=== PATIENT | female | born 1970 | race Two or more races ===

== ENCOUNTER 2016-10-20 08:32 | Emergency (ER) | payer MEDICAID ==
[~2016-10-20] VITALS: Ht 167.6 cm; Wt 91.2 kg
[2016-10-20 08:32] VITALS: BP 121/79
[2016-10-20] MEDS ORDERED: ASPI1TAB PO (08:39)
[2016-10-20] MEDS ORDERED: IBUPROFEN 600 MG TABLET PO ONE ×2 (09:27→09:30)
[2016-10-20] MEDS ORDERED: HYDROCODONE/APAP 5/325MG 1 EACH TABLET ONE (09:27)
[2016-10-20] MEDS ORDERED: HYDROCODONE/APAP 5/325MG 1 EACH TABLET PO ONE (09:30)
== END 2016-10-20 10:24 | disposition home or self-care (01) ==
LOC: ER 08:35
DX: R51 Headache (principal); Z79.82 Long term (current) use of aspirin
CPT/HCPCS: 99283; A4606; Z7610

== ENCOUNTER 2017-07-20 16:02 | Emergency (ER) | payer MEDICAID ==
[~2017-07-20] VITALS: Ht 167.6 cm; Wt 86.2 kg
[2017-07-20 16:02] VITALS: BP 159/97
[~2017-07-20 16:02] MED LIST: ASPI1TAB PO
--- NOTE | 2017-07-20 16:10 | NUR ---
BIB SELF, WORSENING HEADACHE X 5 DAYS,NO RELIEF WITH OTC MEDS, NAD NOTED, VSS, RESP EVEN AND UNLABORED. SKIN WARM AND DRY, WAITING FOR MD ROSENBAUM.
[2017-07-20] MEDS ORDERED: diphenhydrAMINE HCL 50 MG/ML VIAL ONE (16:55)
[2017-07-20] MEDS ORDERED: ONDANSETRON HCL/PF 4 MG/2 ML VIAL ONE (16:55)
[2017-07-20] MEDS ORDERED: KETOROLAC TROMETHAMINE INJ 30 MG/ML VIAL ONE (16:55)
[2017-07-20] MEDS ORDERED: KETOROLAC TROMETHAMINE INJ 30 MG/ML VIAL IV ONE (17:00)
[2017-07-20] MEDS ORDERED: IV NS 0.9% 1,000 ML BAG IV ONE (17:00)
[2017-07-20] MEDS ORDERED: ONDANSETRON HCL/PF 4 MG/2 ML VIAL IV ONE (17:00)
[2017-07-20] MEDS ORDERED: diphenhydrAMINE HCL 50 MG/ML VIAL IV ONE (17:00)
== END 2017-07-20 18:47 | disposition home or self-care (01) ==
LOC: ER 16:04
DX: G44.209 Tension-type headache, unspecified, not intractable (principal); Z79.82 Long term (current) use of aspirin
CPT/HCPCS: 84703; 96361; 96374; 96375; 99284; A4606; J1200; J1885; J2405; J7030; Z7610

== ENCOUNTER 2017-07-22 00:18 | Emergency (ER) | payer MEDICAID ==
[~2017-07-22] VITALS: Ht 167.6 cm; Wt 88.5 kg
--- NOTE | 2017-07-22 00:55 | NUR ---
To bed 1 a 47 yo female patient bibself c/o tension headache unrelieved by tylenol at home. VSS. Nad noted. ambulatory with steady gait. nondiaphoretic. comfort measures rendered.
--- NOTE | 2017-07-22 01:01 | NUR ---
Dr Decker at bedside to evaluate patient.
[2017-07-22] MEDS ORDERED: oxyCODONE/APAP (5/325 MG) 1 UDTAB TABLET ONE (01:11)
[2017-07-22] MEDS ORDERED: SULFAMETH/TRIMETH 800/160 MG 1 UDTAB TABLET PO ONE ×2 (01:12→01:30)
[2017-07-22] MEDS ORDERED: ONDANSETRON 4 MG TAB.RAPDIS ONE ×2 (01:12→01:21)
[2017-07-22] MEDS ORDERED: HYDROCODONE/APAP 5/325MG 1 EACH TABLET ONE (01:20)
[2017-07-22] MEDS ORDERED: ONDANSETRON 4 MG TAB.RAPDIS SL ONE (01:30)
[2017-07-22] MEDS ORDERED: HYDROCODONE/APAP 5/325MG 1 EACH TABLET PO ONE (01:30)
[2017-07-22] MEDS ORDERED: oxyCODONE/APAP (5/325 MG) 1 UDTAB TABLET PO ONE (01:30)
[2017-07-22 02:29] VITALS: BP 135/88
--- NOTE | 2017-07-22 02:29 | NUR ---
Patient discharged to home in stable condition. Written and verbal after care instructions given. Patient verbalizes understanding of instruction. Patient is ambulatory with steady gait, accompanied by friend. Instructed not to drive. No further complaints. VSS.
== END 2017-07-22 02:30 | disposition home or self-care (01) ==
LOC: ER 00:20
DX: G44.209 Tension-type headache, unspecified, not intractable (principal); Z98.890 Other specified postprocedural states; Z79.82 Long term (current) use of aspirin
CPT/HCPCS: 70450-TC; A4606; Q0162; Z7610

== ENCOUNTER 2017-12-09 11:05 | Emergency (ER) | payer MEDICAID ==
[~2017-12-09] VITALS: Ht 182.9 cm; Wt 81.6 kg
[~2017-12-09 11:05] MED LIST changes: +ASPI-1165 PO; -ASPI1TAB PO
[2017-12-09 11:26] VITALS: BP 140/84
[2017-12-09] MEDS ORDERED: HYDROCODONE/APAP 5/325MG 1 EACH TABLET ONE (11:41)
[2017-12-09] MEDS ORDERED: IBUPROFEN 600 MG TABLET PO ONE ×2 (11:41→12:00)
[2017-12-09] MEDS ORDERED: HYDROCODONE/APAP 5/325MG 1 EACH TABLET PO ONE (12:00)
== END 2017-12-09 11:52 | disposition home or self-care (01) ==
LOC: ER 11:08
DX: M54.5 Low back pain (principal); G89.29 Other chronic pain; Z79.82 Long term (current) use of aspirin; Z60.2 Problems related to living alone; Z98.890 Other specified postprocedural states
CPT/HCPCS: A4606; Z7610

== ENCOUNTER 2018-01-26 23:04 | Emergency (ER) | payer MEDICAID ==
[~2018-01-26] VITALS: Ht 167.6 cm; Wt 83.9 kg
[2018-01-26 23:45] VITALS: BP 151/107
--- NOTE | 2018-01-26 23:45 | NUR ---
PT AMBULATORY TO ER BED 16. BIB SISTER; C/O HEADACHE X 1 DAY, "ALIEVE AND EXCEDRINE DID NOT WORK". PT PLACED ON SENIOR INDUSTRIAL ENGINEER. PT VSS/NAD NOTED/RESP EVEN UNLABORED/SKIN WARM AND DRY/DENIES N-V-D/AFEBRILE/AOX4. AWAITING MD ROSENBAUM.
[2018-01-27] MEDS ORDERED: ONDANSETRON 4 MG TAB.RAPDIS SL ONE
[2018-01-27] MEDS ORDERED: HYDROCODONE/APAP 5/325MG 1 EACH TABLET PO ONE
[2018-01-27] MEDS ORDERED: ONDANSETRON 4 MG TAB.RAPDIS ONE (00:01)
[2018-01-27] MEDS ORDERED: IBUPROFEN 600 MG TABLET PO ONE ×2 (00:01)
[2018-01-27] MEDS ORDERED: HYDROCODONE/APAP 5/325MG 1 EACH TABLET ONE (00:01)
== END 2018-01-27 00:17 | disposition home or self-care (01) ==
LOC: ER 23:09
DX: G44.209 Tension-type headache, unspecified, not intractable (principal); Z60.2 Problems related to living alone; Z79.82 Long term (current) use of aspirin
CPT/HCPCS: 99284; A4606; Q0162; Z7610

== ENCOUNTER 2018-04-08 21:28 | Emergency (ER) | payer MEDICAID ==
[~2018-04-08] VITALS: Ht 165.1 cm; Wt 100.7 kg
[2018-04-08 21:41] VITALS: BP 143/92
--- NOTE | 2018-04-08 22:16 | NUR ---
called pt in wr, no response
--- NOTE | 2018-04-08 22:54 | NUR ---
called pt in wr, no response
--- NOTE | 2018-04-08 23:16 | NUR ---
called pt in wr, no response
== END 2018-04-09 00:24 | disposition left against medical advice (07) ==
LOC: ER 21:30
DX: R07.89 Other chest pain (principal); Z53.21 Procedure and treatment not carried out due to patient leaving prior to being seen by health care provider
CPT/HCPCS: A4606; Z7610; J7030; J7040

== ENCOUNTER 2018-12-05 18:02 | Emergency (ER) | payer SELFPAY ==
[~2018-12-05] VITALS: Ht 167.6 cm; Wt 97.1 kg
[2018-12-05 18:07] VITALS: BP 139/86
[2018-12-05] MEDS ORDERED: CEPHALEXIN MONOHYDRATE 500 MG CAPSULE PO ONE ×2 (18:30→18:33)
--- NOTE | 2018-12-05 18:45 | NUR ---
Rx provided, patient discharged to home in stable condition. Written and verbal after care instructions given. Patient verbalizes understanding of instruction.
== END 2018-12-05 18:46 | disposition home or self-care (01) ==
LOC: ER 18:05
DX: B35.4 Tinea corporis (principal); L03.113 Cellulitis of right upper limb; R51 Headache; Z98.890 Other specified postprocedural states; Z60.2 Problems related to living alone

== ENCOUNTER 2021-11-09 23:32 | Inpatient (IN) | payer BC ==
[~2021-11-09] VITALS: Ht 167.6 cm; Wt 97.5 kg
[2021-11-10] MEDS ORDERED: ONDANSETRON HCL/PF 4 MG/2 ML VIAL IVP ONE
[2021-11-10] MEDS ORDERED: IV NS 0.9% 1,000 ML BAG IV ONE
--- NOTE | 2021-11-10 | NUR ---
TO ER BED 2. BIBS C/O L SIDED CP, SYNCOPAL EPISODE WITH "DIZZYSPELLS ON AND OFF AFTER" WHILE AT WORK. PT CHANGED INTO GOWN. CONNECTED TO MONITOR. FALL PRECAUTIONS IN PLACE. WILL CONTINUE TO MONITOR
--- NOTE | 2021-11-10 00:21 | NUR ---
PT TAKEN FOR XRAY
[2021-11-10] MEDS ORDERED: MECLIZINE HCL 25 MG TABLET PO ONE (00:30)
[2021-11-10 00:38] LABS: BASOPHILS % (AUTO) 0.4 % (0.0-2.0); EOSINOPHILS % (AUTO) 1.4 % (0.0-6.0); HEMATOCRIT 38 % (33-45); HEMOGLOBIN 12.4 g/dL (11.5-14.8); LYMPHOCYTES # (AUTO) 2.7 K/uL (0.8-4.8); LYMPHOCYTES % (AUTO) 37.2 % (20.0-44.0); MEAN CORPUSCULAR HGB CONC 32 g/dl (31.0-36.0); MEAN CORPUSCULAR VOLUME 88 fL (82-100); MONOCYTES # (AUTO) 0.5 K/uL (0.1-1.30); MONOCYTES % (AUTO) 7.4 % (2.0-12.0); NEUTROPHILS # (AUTO) 3.9 K/uL (1.8-8.9); NEUTROPHILS % (AUTO) 53.6 % (43.0-81.0); PLATELET COUNT (AUTO) 269 K/uL (150-450); RED BLOOD CELL COUNT(AUTO) 4.39 MIL/uL (4.0-5.2); WHITE BLOOD COUNT (AUTO) 7.2 K/uL (4.3-11.0)
--- NOTE | 2021-11-10 00:51 | NUR ---
BLOOD COLLECTED AND SENT TO LAB
--- NOTE | 2021-11-10 00:52 | NUR ---
IV LINE ESTABLISHED RAC 20G
[2021-11-10] MEDS ORDERED: ASPIRIN EC 325 MG TABLET.DR PO ONE (00:54)
[2021-11-10] MEDS ORDERED: MECLIZINE HCL 25 MG TABLET ONE (00:54)
[2021-11-10] MEDS ORDERED: ONDANSETRON HCL/PF 4 MG/2 ML VIAL ONE (00:54)
[2021-11-10 01:00] LABS: CARBON DIOXIDE 30 mmol/L (21-32); CHLORIDE 105 mmol/L (98-107); CREATININE 0.9 mg/dL (0.6-1.3); GLUCOSE 106 mg/dL (74-106); POTASSIUM 3.4 mmol/L (3.5-5.1); SODIUM SERUM 141 mmol/L (136-145); UREA NITROGEN, BLOOD 13 mg/dL (7-18)
[2021-11-10] MEDS ORDERED: ASPIRIN 325 MG TABLET PO ONE (01:00)
--- NOTE | 2021-11-10 01:03 | NUR ---
COVID ANTIGEN SWAB COLLECTED AND SENT TO LAB
[2021-11-10 01:12] LABS: ALANINE AMINOTRANSFERASE 31 U/L (12-78); ALBUMIN 3.6 g/dL (3.4-5.0); ALKALINE PHOSPHATASE 84 U/L (46-116); ASPARTATE AMINOTRANSFERASE 20 U/L (15-37); BILIRUBIN,DIRECT 0.1 mg/dL (0.0-0.2); BILIRUBIN,TOTAL 0.4 mg/dL (0.2-1.0); TOTAL PROTEIN, SERUM 7.3 g/dL (6.4-8.2)
--- NOTE | 2021-11-10 02:14 | NUR ---
URINE COLLECTED AND SENT TO LAB
--- NOTE | 2021-11-10 03:16 | NUR ---
PROVIDED PT WITH BLANKETS, PT RESTING COMFORTABLY IN BED. WILL CONTINUE TO MONITOR
[2021-11-10] MEDS ORDERED: MAG HYDROX/AL HYDROX/SIMETH 30 ML UDC PO PRN (04:30)
[2021-11-10] MEDS ORDERED: POTASSIUM CHLORIDE 20 MEQ TAB.PRT.SR PO ONE ×2 (04:30→05:40)
[2021-11-10] MEDS ORDERED: ACETAMINOPHEN 325 MG TABLET PO PRN (04:30)
[2021-11-10] MEDS ORDERED: MAGNESIUM HYDROXIDE 30 ML UDC PO PRN (04:30)
[2021-11-10] MEDS ORDERED: Z GUARD REMEDY 4 OZ OINT TP PRN (04:30)
[2021-11-10] MEDS ORDERED: ZOLPIDEM TARTRATE 5 MG TABLET PO PRN (04:30)
[2021-11-10] MEDS ORDERED: ONDANSETRON HCL/PF 4 MG/2 ML VIAL IVP PRN (04:30)
--- NOTE | 2021-11-10 05:21 | NUR ---
REPORT GIVEN TO YVAN RICHARDS FOR ARNALDO
--- NOTE | 2021-11-10 05:22 | NUR ---
RN NOTES RECEIVED REPORT FROM ER NURSE YOLANDA
[2021-11-10 05:55] VITALS: BP 133/85
--- NOTE | 2021-11-10 05:55 | NUR ---
HOSPICE CLINICAL MARKETER NOTES RECEIVED FROM LENGTH CONTROL TESTER YOLANDA. PATIENT A/O X 4. VERBALLY RESPONSIVE ON ROOM AIR SATING 99% RESPIRATORY EVEN AND UNLABORED. PATIENT NOTED WITH RAC #20G PERIPHERAL LINE INTACT AND PATENT, FLUSHED WITH NS NO INFILTRATION NOTED AT SITE. SINUS RHYTHM ON MONITOR. VITAL SIGN TAKEN AND RECORDED. COMPLETE BODY ASSESSMENT DONE, SKIN INTACT. ALL SAFETY MEASURES IN PLACE. BED IN LOWEST AND LOCKED POSITION. CALL LIGHT WITHIN REACH. WILL CONTINUE TO MONITOR.
--- NOTE | 2021-11-10 06:00 | NUR ---
MRSA SWAB COLLECTED AND SENT TO LAB
--- NOTE | 2021-11-10 07:33 | NUR ---
RN NOTE RECEIVED PATIENT ASLEEP IN BED, RESPONDED TO NAME. ON ROOM AIR NO CURRENT COMPLAINS OF SOB OR PAIN. IV ACCESS ON RIGHT AC 20g INTACT WITH NO SIGNS OF INFILTRATION. PATIENT ON REGULAR DIET, ON TELE MONITOR. SAFETY MEASURES IMPLEMENTED, CALL LIGHT WITHIN REACH BED LOCKED IN THE LOWEST POSITION, TWO SIDE RAILS UP. PATIENT ASSISTED TO THE BATHROOM, STEADY GAIT.
[2021-11-10 08:00] VITALS: BP 116/66
[2021-11-10] MEDS ORDERED: ASPIRIN/ACETAMINOPHEN/CAFFEINE 1 EACH TABLET PO PRN (09:00)
[2021-11-10 10:51] LABS: MAGNESIUM 2.2 mg/dL (1.8-2.4)
[2021-11-10 12:00] VITALS: BP 123/81
[2021-11-10 15:33] LABS: THYROID STIMULATING HORMONE 3.216 uIU/mL (0.358-3.74)
[2021-11-10 16:00] VITALS: BP 137/85
--- NOTE | 2021-11-10 16:22 | NUR ---
RN NOTE DISCHARGE INSTRUCTIONS REVIEWED WITH PATIENT, PICKED UP BY DAUGHTER IN STABLE CONDITION.
== END 2021-11-10 16:20 | disposition home or self-care (01) | DRG 206 ==
LOC: ER 23:34 → TELE1 11-10 05:19
PROVIDERS: ADMIT Internal Medicine; ATTEND Internal Medicine
DX: M94.0 Chondrocostal junction syndrome [Tietze] (principal); R55 Syncope and collapse; E87.6 Hypokalemia; Z98.891 History of uterine scar from previous surgery; G47.33 Obstructive sleep apnea (adult) (pediatric)
CPT/HCPCS: 36415; 70450-TC; 71045-TC; 80048-TC; 80061-TC; 80076-TC; 83735-TC; 84439-TC; 84443-TC; 84484-TC; 84703-TC; 85025-TC; 85378-TC; 85730-TC; 87081-TC; 93307-TC; 93880-TC; C9803; G0378; J2405; J8597

== ENCOUNTER 2022-03-08 22:13 | Emergency (ER) | payer BC ==
[~2022-03-08] VITALS: Ht 167.6 cm; Wt 104.3 kg
--- NOTE | 2022-03-08 22:45 | NUR ---
TO ER BED 3. BIBS C/O HIGH BP, CHEST PRESSURE, HEADACHE AND DIZZINESS AFTER STARTING [place]. PT IS ALERT AND ORIENTED. AMBULATORY WITH STEADY GAIT. BREATHING IS EVEN AND NON LABORED. CONNECTED TO MONITOR. AWAITING MD ROSENBAUM
--- NOTE | 2022-03-08 22:49 | NUR ---
DR. TIM LOGAN AT PT'S BEDSIDE
[2022-03-08] MEDS ORDERED: ONDANSETRON HCL/PF 4 MG/2 ML VIAL ONE (22:59)
--- NOTE | 2022-03-08 22:59 | NUR ---
EMT AT PT'S BEDSIDE FOR EKG
[2022-03-08] MEDS ORDERED: ONDANSETRON HCL/PF 4 MG/2 ML VIAL IVP ONE (23:00)
--- NOTE | 2022-03-08 23:05 | NUR ---
IV LINE ESTABLISHED, RAC20G. BLOOD COLLECTED AND SENT TO LAB
--- NOTE | 2022-03-08 23:11 | NUR ---
PT TAKEN FOR CT SCAN
--- NOTE | 2022-03-08 23:25 | NUR ---
BACK FROM CT
[2022-03-08 23:33] LABS: BASOPHILS % (AUTO) 0.2 % (0.0-2.0); EOSINOPHILS % (AUTO) 1.1 % (0.0-6.0); HEMATOCRIT 39 % (33-45); HEMOGLOBIN 12.6 g/dL (11.5-14.8); LYMPHOCYTES # (AUTO) 3.7 K/uL (0.8-4.8); LYMPHOCYTES % (AUTO) 43.3 % (20.0-44.0); MEAN CORPUSCULAR HGB CONC 33 g/dl (31.0-36.0); MEAN CORPUSCULAR VOLUME 86 fL (82-100); MONOCYTES # (AUTO) 0.7 K/uL (0.1-1.30); MONOCYTES % (AUTO) 8.6 % (2.0-12.0); NEUTROPHILS % (AUTO) 46.8 % (43.0-81.0); PLATELET COUNT (AUTO) 228 K/uL (150-450); RED BLOOD CELL COUNT(AUTO) 4.45 MIL/uL (4.0-5.2); WHITE BLOOD COUNT (AUTO) 8.6 K/uL (4.3-11.0)
[2022-03-08 23:47] LABS: CALCIUM, SERUM 8.9 mg/dL (8.5-10.1); CARBON DIOXIDE 30 mmol/L (21-32); CHLORIDE 103 mmol/L (98-107); GLUCOSE 86 mg/dL (74-106); POTASSIUM 3.5 mmol/L (3.5-5.1); SODIUM SERUM 139 mmol/L (136-145); UREA NITROGEN, BLOOD 11 mg/dL (7-18)
[2022-03-08 23:51] LABS: ALANINE AMINOTRANSFERASE 28 U/L (12-78); ALBUMIN 3.5 g/dL (3.4-5.0); ALKALINE PHOSPHATASE 79 U/L (46-116); ASPARTATE AMINOTRANSFERASE 18 U/L (15-37); BILIRUBIN,DIRECT 0.1 mg/dL (0.0-0.2); BILIRUBIN,TOTAL 0.3 mg/dL (0.2-1.0); TOTAL PROTEIN, SERUM 7.3 g/dL (6.4-8.2)
--- NOTE | 2022-03-09 00:56 | NUR ---
ELECTRICIAN RADIO AT PT'S BEDSIDE
[2022-03-09 02:23] VITALS: BP 140/90
--- NOTE | 2022-03-09 02:23 | NUR ---
Patient discharged to home in stable condition. Written and verbal after care instructions given. Patient verbalizes understanding of instruction.
== END 2022-03-09 02:29 | disposition home or self-care (01) ==
LOC: ER 22:13
DX: R07.89 Other chest pain (principal); I10 Essential (primary) hypertension; Z98.890 Other specified postprocedural states; Z60.2 Problems related to living alone
CPT/HCPCS: 99285; 96374; 70450; 71045; 93005; 85025; 80048; 80076; 36415 ×2; 84484 ×2; 85730; J2405